=== PATIENT | female | born 1940 | race Caucasian/White ===

== ENCOUNTER 2016-07-14 12:41 | Emergency (ER) | payer OTHER ==
[~2016-07-14] VITALS: Ht 152.4 cm; Wt 71.7 kg
[~2016-07-14 12:41] MED LIST: ABILIFY 5MG5 MG PO; ALENDRONATE SOD70 M1 PO; ALPRAZOLAM0.5 MG PO; ARICEPT PO; ATIVAN0.5 M1 PO; BACTRIM DS TAB1 EACH PO; BENTYL10 M1 PO; DOXYCYCLINE HY100 M4 PO; DOXYCYCLINE MO100 MG PO; ENDOCET 325 MG-1 TA1 PO; FIBERCON625 M1 PO; GRAPE SEED EXTR50 M1 PO; MASON NATURAL2000 IU PO; NAMENDA10 M2 PO; PANTOPRAZOLE SO40 M1; POLYETHYLENE G255 GM PO; PRISTIQ100 MG PO; PROTONIX40 M3 PO; RITALIN10 MG PO; RITALIN5 M1 PO; SULFAMETHOXAZO1 EAC1 PO; ZOFRAN ODT4 M1 SL
--- NOTE | 2016-07-14 12:47 | ED GENERAL ADULT ---
History of Present Illness General Chief Complaint: Abdominal Pain/Flank Pain Stated Complaint: ABD PAIN, BRB IN STOOL Source: patient, family Exam Limitations: no limitations, unable to give history, patient's age, confusion, dementia Vital Signs & Intake/Output Vital Signs & Intake/Output Vital Signs Date Time Temp Pulse Resp B/P Pulse O2 O2 Flow FiO2 Ox Delivery Rate 07/14 1713 72 20 133/60 97 Room Air 07/14 1534 8.8 72 20 135/61 96 Room Air 07/14 1244 97 Room Air Room Air 07/14 1244 96.7 78 20 131/87 96 Room Air Allergies Coded Allergies: Penicillins (Severe, ANAPHYLAXIS 07/14/16) iodine (Severe, THROAT SWELLING 07/14/16) shellfish derived (Severe, RESPIRATORY 07/14/16) aspirin (Intermediate, ULCER 07/14/16) gluten (Intermediate, CELIAC DISEASE 07/14/16) Reconcile Medications Alendronate Sodium 70 MG TAB 1 TAB PO QW BONES (Reported) HOLD: DOSE ON SATURDAY Calcium Polycarbophil (Fibercon) 625 MG TABLET 1 TAB PO PRN SUPPLEMENT ( Reported) CHOLECALCIFEROL (VITAMIN D3) (Vitamin D) 2,000 UNIT CAPSULE 1 CAP PO DAILY SUPPLEMENT Desvenlafaxine Succinate (Pristiq ER) 100 MG TAB.ER.24H 1 TAB PO DAILY MENTAL HEALTH (Reported) Donepezil HCl (Aricept) 23 MG TABLET 1 TAB PO DAILY ALZHEIMERS (Reported) Grape Seed Extract 50 MG CAPSULE 2 CAP PO DAILY SUPPLEMENT (Reported) Lorazepam 1 MG TABLET 1 TAB PO TID ANXIETY (Reported) Memantine HCl (Namenda) 10 MG TABLET 1 TAB PO BID MEMORY (Reported) Methylphenidate Hydrochloride (Ritalin) 10 MG TABLET 1 TAB PO BID STIMULATION (Reported) Olanzapine (Zyprexa) 2.5 MG TABLET 1 TAB PO QPM UNK (Reported) Polyethylene Glycol 3350 255 GM POWDER 17 GM PO DAILY GI (Reported) Triage Nurses Notes Reviewed? yes Onset: Abrupt Duration: day(s): Timing: recent history HPI: 07/14/16 2:16 PM This is a 76-year-old female presents to the emergency department complaining of abdominal pain and rectal bleeding. According to the patient's , she was in her usual state of health until Saturday night when she developed lower abdominal pain. She went to the bathroom and had a large amount of diarrhea on Saturday. and Saturday she seemed to do well. Today she developed rectal bleeding and lower abdominal pain. There is no vomiting. She is a poor historian and is unable to give adequate history secondary to dementia. The onset of the symptoms were abrupt, the duration has been just today, the severity is significant; as her symptoms required her to come to the emergency department for care. She has associated rectal bleeding and abdominal pain. She's been taking GoLYTELY daily for the past month Past History Medical History Any Pertinent Medical History? 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 MOTHER Relation not specified for: *No pertinent family history FH: diabetes mellitus Hx Contributory? No Review of Systems Review of Systems Constitutional: Denies: fever. EENTM: Denies: visual changes. Respiratory: Denies: short of breath. Cardiovascular: Denies: chest pain. GI: Reports: abdominal pain, bloody stool. Denies: vomiting. Genitourinary: Reports: no symptoms. Musculoskeletal: Reports: no symptoms. Skin: Reports: no symptoms. Neurological/Psychological: Reports: no symptoms. Hematologic/Endocrine: Reports: bleeding. Immunologic/Allergic: Reports: no symptoms. Physical Exam Physical Exam General Appearance: alert, awake, anxious, mild distress Head: atraumatic, normal appearance Eyes: Bilateral: normal appearance, PERRL. Ears, Nose, Throat: normal pharynx, normal ENT inspection, hearing grossly normal Neck: supple Respiratory: chest non-tender, no respiratory distress Cardiovascular: regular rate/rhythm Peripheral Pulses: 4+ radial (R), 4+ radial (L) Gastrointestinal: soft, non-tender Rectal: heme positive stool, gross blood, no impaction Back: decreased range of motion Extremities: normal range of motion Neurologic/Psych: awake, alert Skin: intact, normal color, warm/dry Comments: The patient has significant leukocytosis. H&H was stable. She was treated with IV fluids. She only had minimal bleeding. The case was discussed with the liquor department manager Dr. Metzger, agrees with the plan. Stop GoLYTELY. The patient will follow-up with Dr. David this week. Return to the emergency department of rectal bleeding returns. CT scan shown below - PATIENT: MACIEL DELEON PRESENT AGE: 76 PATIENT ACCOUNT NO: [id number] : 40 LOCATION: [facility] ORDERING PHYSICIAN: SANTIAGO VILLEDA DO SERVICE DATE: 07/14/16 EXAM TYPE: CAT - CT ABD & PELVIS W/O IV CONTRAS EXAMINATION: CT ABDOMEN AND PELVIS WITHOUT CONTRAST CLINICAL INFORMATION: Rectal bleeding. Abdominal pain. COMPARISON: CT abdomen and pelvis 03/02/2016 TECHNIQUE: Multidetector volumetric imaging was performed from the superior aspect of the liver through the pubic symphysis. Sagittal and coronal reformatted images were obtained on the technologist's workstation. DLP: 411 mGy-cm. FINDINGS: LUNG BASES: There is bandlike dense atelectasis right lower lobe adjacent to the diaphragm. Left lung base is clear. The heart size is normal. LIVER, GALLBLADDER, AND BILIARY TREE: The liver is normal in size, shape, and attenuation. No focal hepatic lesion or biliary ductal dilatation is present. The gallbladder is unremarkable with no evidence of radiopaque gallstones, gallbladder wall thickening, or obvious pericholecystic inflammatory changes. PANCREAS: Unremarkable. SPLEEN: Unremarkable. ADRENAL GLANDS: Unremarkable. KIDNEYS AND URETERS: The kidneys are normal in size, shape, and attenuation. No hydronephrosis, hydroureter, or calculi seen. No perinephric stranding. BLADDER: Unremarkable. GASTROINTESTINAL TRACT: There is scattered stool in the colon without distention. The small bowel loops are normal caliber. No free air or free fluid seen. ABDOMINAL WALL: There is a left abdominal wall hernia repair involving the inguinal/femoral region with surgical estrada in place. No recurrent hernia seen. LYMPH NODES: Normal. VASCULAR: Atherosclerotic calcification of abdominal aorta is noted without aneurysmal dilatation. PELVIC VISCERA: The uterus appears to be surgically absent. No adnexal mass seen. There is no free fluid. No abnormal lymph nodes. There are scattered phleboliths in the pelvis. OSSEOUS STRUCTURES: There is levoscoliosis of lumbar spine with degenerative disc changes L2-L3, L4-L5 disc levels with vacuum disc phenomena and spondylosis. IMPRESSION: No acute intra-abdominal process. There is left lower inguinal/femoral hernia repair changes. No recurrent hernia seen. Thick bandlike right lower lobe atelectasis. DICTATED BY: MIGUEL A ELIZALDE MD DATE/TIME DICTATED:07/14/161507 CONCRETER:HAMLET DATE/TIME TRANSCRIBED:07/14/161507 CONFIDENTIAL, DO NOT COPY WITHOUT APPROPRIATE AUTHORIZATION. <Electronically signed in Other Vendor System> SIGNED BY: TONIO MORALES,MIGUEL A 07/14/16 1523 Core Measures ACS in differential dx? No CVA/TIA Diagnosis: No Severe Sepsis Present: No Septic Shock Present: No Progress Differential Diagnoses I considered the following diagnoses in my evaluation of the patient: [Bowel obstruction, diverticulosis, diverticulitis, colitis, internal hemorrhoid, coagulopathy] Plan of Care: Orders Procedure Date/time Status PROTHROMBIN TIME 07/14 1404 Complete COMPREHENSIVE METABOLIC PANEL 07/14 1404 Complete CBC WITHOUT DIFFERENTIAL 07/14 1404 Complete AMYLASE 07/14 1404 Complete TYPE & SCREEN (NOT X-MATCH) 07/14 140 Complete EKG 07/14 1253 Active Laboratory Tests 07/14/16 1606: Anion Gap 11, Estimated GFR > 60, BUN/Creatinine Ratio 21.7, Glucose 90, Calcium 9.3, Total Bilirubin 0.5, AST 20, ALT 36, Alkaline Phosphatase 84, Total Protein 7.3, Albumin 4.1, Globulin 3.2, Albumin/Globulin Ratio 1.3, Amylase 41 07/14/16 1437: PT 11.1, INR 1.06, CBC w Diff NO MAN DIFF REQ, RBC 5.07, MCV 88.2, MCH 29.7, RDW 12.9, MPV 9.3, Gran % 82.3 H, Lymphocytes % 12.1 L, Monocytes % 5.5, Eosinophils % 0.1, Basophils % 0 L, Absolute Granulocytes 13.1 H, Absolute Lymphocytes 1.9, Absolute Monocytes 0.9 H, Absolute Eosinophils 0, Absolute Basophils 0, PUBS MCHC 33.6 Initial ED EKG: none Departure Departure Disposition: STILL A PATIENT Condition: Stable Clinical Impression Primary Impression: Rectal bleeding Referrals: JAIRON MORALES,BECKY Britton (PCP/Family) Departure Forms: Customer Survey General Discharge Information Comments 07/14/16 Patient was treated with IV fluids. Labs were sent. CT scan of the abdomen and pelvis was ordered to exclude obstruction. 07/14/16 5 pm Spoke with GI. Case discussed. The patient is asymptomatic in the Emergency Department. H&H are stable. CT shows no acute findings. We will hold GoLYTELY. They will follow up with GI this week Critical Care Note Critical Care Note Critical Care Time: non-applicable
[2016-07-14 14:47] LABS: ABSOLUTE BASOPHIL COUNT 0 /CUMM (0.0-0.2); ABSOLUTE EOSINOPHIL COUNT 0 /CUMM (0.0-0.7); ABSOLUTE GRANULOCYTE CT 13.1 /CUMM (1.4-6.5); ABSOLUTE LYMPH COUNT 1.9 /CUMM (1.2-3.4); ABSOLUTE MONOCYTE COUNT 0.9 /CUMM (0.10-0.60); BASOPHIL % 0 % (0.0-2.0); EOSINOPHIL % 0.1 % (0-5); GRANULOCYTE % 82.3 % (42.2-75.2); HEMATOCRIT 44.7 % (37-47); MEAN CORPUSCULAR HGB 29.7 PG (27.0-31.0); MEAN CORPUSCULAR HGB CONC 33.6 G/DL (33.0-37.0); MEAN CORPUSCULAR VOLUME 88.2 FL (81.0-99.0); MEAN PLATELET VOLUME 9.3 FL (7.4-10.4); PLATELET COUNT 219 /CUMM (130-400); RBC DISTRIBUTION WIDTH 12.9 % (11.5-14.5); RED BLOOD CELL CT 5.07 /CUMM (4.20-5.40); WHITE BLOOD CELL COUNT 15.9 /CUMM (4.8-10.8)
[2016-07-14 14:53] LABS: PT 11.1 SEC (9.4-12.5)
[2016-07-14] MEDS ORDERED: LORAZEPAM1 M1 PO (15:04)
[2016-07-14] MEDS ORDERED: ZYPREXA2.5 M1 PO (15:05)
--- NOTE | 2016-07-14 15:23 | CT SCAN REPORT ---
EXAMINATION: CT ABDOMEN AND PELVIS WITHOUT CONTRAST CLINICAL INFORMATION: Rectal bleeding. Abdominal pain. COMPARISON: CT abdomen and pelvis 03/02/2016 TECHNIQUE: Multidetector volumetric imaging was performed from the superior aspect of the liver through the pubic symphysis. Sagittal and coronal reformatted images were obtained on the technologist's workstation. DLP: 411 mGy-cm. FINDINGS: LUNG BASES: There is bandlike dense atelectasis right lower lobe adjacent to the diaphragm. Left lung base is clear. The heart size is normal. LIVER, GALLBLADDER, AND BILIARY TREE: The liver is normal in size, shape, and attenuation. No focal hepatic lesion or biliary ductal dilatation is present. The gallbladder is unremarkable with no evidence of radiopaque gallstones, gallbladder wall thickening, or obvious pericholecystic inflammatory changes. PANCREAS: Unremarkable. SPLEEN: Unremarkable. ADRENAL GLANDS: Unremarkable. KIDNEYS AND URETERS: The kidneys are normal in size, shape, and attenuation. No hydronephrosis, hydroureter, or calculi seen. No perinephric stranding. BLADDER: Unremarkable. GASTROINTESTINAL TRACT: There is scattered stool in the colon without distention. The small bowel loops are normal caliber. No free air or free fluid seen. ABDOMINAL WALL: There is a left abdominal wall hernia repair involving the inguinal/femoral region with surgical estrada in place. No recurrent hernia seen. LYMPH NODES: Normal. VASCULAR: Atherosclerotic calcification of abdominal aorta is noted without aneurysmal dilatation. PELVIC VISCERA: The uterus appears to be surgically absent. No adnexal mass seen. There is no free fluid. No abnormal lymph nodes. There are scattered phleboliths in the pelvis. OSSEOUS STRUCTURES: There is levoscoliosis of lumbar spine with degenerative disc changes L2-L3, L4-L5 disc levels with vacuum disc phenomena and spondylosis. IMPRESSION: No acute intra-abdominal process. There is left lower inguinal/femoral hernia repair changes. No recurrent hernia seen. Thick bandlike right lower lobe atelectasis.
[2016-07-14 17:13] VITALS: BP 133/60
== END 2016-07-14 17:15 ==
LOC: ERH 12:41
PROVIDERS: Emergency Medicine
DX: K62.5 Hemorrhage of anus and rectum (principal)
CPT/HCPCS: 74176; 93005; 93010; 96361; 96374

== ENCOUNTER 2017-08-07 12:32 | Emergency (ER) | payer OTHER ==
[~2017-08-07] VITALS: Ht 152.4 cm; Wt 74.4 kg
[~2017-08-07 12:32] MED LIST changes: -ALENDRONATE SOD70 M1 PO; +ALENDRONATE SOD70 M2 PO; +LORAZEPAM1 M1 PO; +PRISTIQ ER100 MG PO; -PRISTIQ100 MG PO; +ZYPREXA2.5 M1 PO
--- NOTE | 2017-08-07 13:10 | ED GENERAL ADULT ---
History of Present Illness General Chief Complaint: General Adult Stated Complaint: COUGHING,FEVER, RECENTLY WITH FLU Source: patient, family Exam Limitations: no limitations Vital Signs & Intake/Output Vital Signs & Intake/Output Vital Signs Date Time Temp Pulse Resp B/P B/P Pulse O2 O2 Flow FiO2 Mean Ox Delivery Rate 08/07 1611 98.2 96 20 143/88 94 Room Air 08/07 1400 94 Room Air Room Air 08/07 1334 99.7 100 20 150/73 94 Room Air 08/07 1329 98.0 107 122/72 95 Room Air Allergies Coded Allergies: Penicillins (Severe, ANAPHYLAXIS 08/07/17) iodine (Severe, THROAT SWELLING 08/07/17) shellfish derived (Severe, RESPIRATORY 08/07/17) aspirin (Intermediate, ULCER 08/07/17) gluten (Intermediate, CELIAC DISEASE 08/07/17) Reconcile Medications Alendronate Sodium 70 MG TABLET 1 TAB PO Mo BONE (Reported) in the morning, at least 30 minutes before the first food, beverage, or medication of the day Benzonatate (Tessalon Perle) 100 MG CAPSULE 1 CAP PO TID PRN COUGH Desvenlafaxine Succinate (Pristiq ER) 100 MG TAB.ER.24H 1 TAB PO DAILY MENTAL HEALTH (Reported) Donepezil HCl (Aricept) 23 MG TABLET 1 TAB PO DAILY ALZHEIMERS (Reported) Fluticasone Propionate (Flonase Allergy Relief) 50 MCG/ACTUATION SPRAY.SUSP 1 SPRAY YARY BID PRN CONGESTION LORazepam (Ativan) 1 MG TAB 1 TAB PO TID PRN ANXIETY (Reported) Memantine HCl (Namenda) 10 MG TABLET 1 TAB PO BID MEMORY (Reported) Olanzapine (Zyprexa) 2.5 MG TABLET 1 TAB PO TID UNK (Reported) Olanzapine 2.5 MG TABLET 1 TAB PO DAILY PRN AGITATION (Reported) Triage Nurses Notes Reviewed? yes Onset: Gradual Duration: day(s): (2) Timing: remote history Injury Environment: home Severity: moderate No Modifying Factors: none HPI: Patient is a 77-year-old female from home presenting with family members with chief complaint of cough, low-grade fevers for the past 2 days. was recently admitted to hospital for influenza, just discharged this morning. No sputum production. Patient has been eating within normal limits. Cognitive abilities in mentation at baseline according to family members. Abdomen noticed any discolored urine. No diarrhea. They have not been giving her anything to help with symptoms. (Janee Aguero) Past History Travel History Traveled to [place] past 21 day No Medical History Any Pertinent Medical History? see below for history Neurological: Alzheimer's disease, dizziness, vertigo EENT: allergies, cataracts Cardiovascular: NONE Respiratory: NONE Gastrointestinal: constipation, CELIAC DISEASE HERNIA Hepatic: NONE Renal: KIDNEY STONES Musculoskeletal: disk herniation, falls, fracture, LAMINECTOMY Psychiatric: depression Endocrine: PRE-DIABETIC Blood Disorders: NONE Cancer(s): NONE WOOD GOUGER/Reproductive: NONE History of MRSA: Yes History of VRE: No History of CDIFF: No Surgical History Surgical History: appendectomy, hysterectomy Psychosocial History Who do you live with Spouse What is your primary language Sinhala Family History Family History, If Any: FATHER, , Age 50-60; Cause: Myocardial infarct. MOTHER Relation not specified for: *No pertinent family history FH: diabetes mellitus Hx Contributory? No (Janee Aguero) Review of Systems Review of Systems Constitutional: Reports: see HPI, fever, malaise. Comments Review of systems: See HPI, All other systems negative. Constitutional, no weight loss HEENT: No visual changes no sore throat Cardiovascular: No chest pain ,palpitation , orthopnea or ankle swelling Skin, no jaundice no rashes Respiratory: No dyspnea sputum or hemoptysis GI: No nausea no vomiting : No dysuria No hematuria Muscle skeletal: no back pain, no neck pain, Neurologic: No numbness no increased confusion Psych: No stress anxiety or depression,. Heme/endocrine: No bruising no bleeding no polyuria or polydipsia Immunology: No splenectomy or history of AIDS (Janee Aguero) Physical Exam Physical Exam General Appearance: well developed/nourished, no apparent distress, alert, awake , comfortable Comments: Well-developed well-nourished person in no acute distress, appears fatigued HEENT: Pupils equally round and reactive to light and accommodation. Nose is atraumatic. External auditory canal and Tympanic membranes clear. Pharynx normal. No swelling or edema. Neck: Supple, no lymphadenopathy, normal range of motion without pain or tenderness Cardiovascular: Regular rate and rhythms no murmurs rubs or gallops, normal JVP Respiratory: Chest nontender. No respiratory distress.breath sounds diminished to auscultation bilaterally Abdomen: Soft, nontender nondistended, no appreciable organomegaly. Normal bowel sounds. No ascites Extremity: No edema, no calf tenderness to palpation, normal and equal pulses. Neuro: Alert oriented x3, motor sensory normal, cranial nerves II through XII grossly intact. Skin: No appreciable rash on exposed skin, skin is warm and dry. Psych: Mood and affect is normal, memory and judgment is normal. Core Measures ACS in differential dx? No CVA/TIA Diagnosis: No Sepsis Present: No Sepsis Focused Exam Completed? No (Emmett LUONG,Janee) Progress Differential Diagnoses I considered the following diagnoses in my evaluation of the patient: Pneumonia , bronchitis, influenza, electrolyte abnormality, dehydration, UTI, viral syndrome Plan of Care: Orders Procedure Date/time Status Heart Healthy Diet 08/07 D Active LACTIC ACID 08/07 1559 Active Straight Cath 08/07 1517 Active BLOOD CULTURE 08/07 1259 Active URINALYSIS 08/07 1259 Complete TROPONIN LEVEL 08/07 1259 Complete LACTIC ACID 08/07 1259 Complete COMPREHENSIVE METABOLIC PANEL 08/07 1259 Complete CBC WITHOUT DIFFERENTIAL 08/07 1259 Complete EKG 08/07 1259 Active RAPID VIRAL INFLUENZA A 08/07 1235 Complete Laboratory Tests 08/07/17 1601: Urine Color YEL, Urine Clarity CLEAR, Urine pH 6.0, Ur Specific Pitman 1.010, Urine Protein NEG, Urine Ketones NEG, Urine Nitrite NEG, Urine Bilirubin NEG, Urine Urobilinogen 0.2, Ur Leukocyte Esterase NEG, Ur Microscopic EXAM NOT REQUIRED, Urine Hemoglobin NEG, Urine Glucose NEG 08/07/17 1455: Anion Gap 16, Estimated GFR > 60, BUN/Creatinine Ratio 13.3, Glucose 108 H, Lactic Acid 2.8 H, Calcium 9.7, Total Bilirubin 0.6, AST 24, ALT 25, Alkaline Phosphatase 89, Troponin I < 0.01, Total Protein 7.7, Albumin 4.4, Globulin 3.3, Albumin/Globulin Ratio 1.3, CBC w Diff NO MAN DIFF REQ, RBC 5.31, MCV 88.7, MCH 29.8, MCHC 33.5, RDW 13.3, MPV 8.7, Gran % 75.0, Lymphocytes % 14.3 L, Monocytes % 9.8 H, Eosinophils % 0.2, Basophils % 0.7, Absolute Granulocytes 5.4, Absolute Lymphocytes 1.0 L, Absolute Monocytes 0.7 H, Absolute Eosinophils 0, Absolute Basophils 0.1 Microbiology 08/07 1259 BLOOD: Blood Culture - ORD 08/07 1259 BLOOD: Blood Culture - ORD 08/07 1258 NASOPHARYN: Influenza Virus A & B Rapid Smear - COMP Improved after IV hydration. Influenza swab was negative. Blood work unremarkable. Patient more alert at this time, eating difficulty. Family feels comfortable bringing her home. They arranged a chair car for her to go home and. Discussed with attending and they agree with plan. Patient is nontoxic and compliant. Diagnostic Imaging: Viewed by Me: Radiology Read. Discussed w/RAD: Radiology Read. Radiology Impression: PATIENT: MACIEL DELEON PRESENT AGE: 77 PATIENT ACCOUNT NO: [id number] : 40 LOCATION: [facility] ORDERING PHYSICIAN: Janee LUONG SERVICE DATE: 08/07/17-1 EXAM TYPE: RAD - XRY-PORTABLE CHEST XRAY EXAMINATION: XR PORTABLE CHEST CLINICAL INFORMATION: Cough and shortness of breath. Evaluate for pneumonia. COMPARISON: Chest radiograph 09/27/2016. TECHNIQUE: Portable frontal view of the chest was obtained. FINDINGS: Lung volumes are low and there is associated hilar vascular crowding and bibasilar subsegmental atelectasis. Grossly no overt consolidative disease or effusion. The cardiac silhouette and upper mediastinal contours are unremarkable. No acute osseous finding. Cardiac leads overlie the chest. IMPRESSION: Low lung volumes with associated hilar vascular crowding and bibasilar subsegmental atelectasis. No overt consolidative disease or effusion. DICTATED BY: Bernard Rankin MD DATE/TIME DICTATED:08/07/171400 FOOD AND DRUG INSPECTOR:HAMLET DATE/TIME TRANSCRIBED:08/07/171400 CONFIDENTIAL, DO NOT COPY WITHOUT APPROPRIATE AUTHORIZATION. <Electronically signed in Other Vendor System> SIGNED BY: Bernard Rankin MD 08/07/17 1405, PATIENT: MACIEL DELEON PRESENT AGE: 77 PATIENT ACCOUNT NO : [id number] : 40 LOCATION: ER ORDERING PHYSICIAN: Janee LUONG SERVICE DATE: 08/07/17-1442 EXAM TYPE: CAT - CT ABD & PELVIS W/O IV CONTRAS EXAMINATION: CT ABDOMEN AND PELVIS WITHOUT CONTRAST CLINICAL INFORMATION: Increased loose stools, evaluate for diverticulitis. COMPARISON: CT scan of the abdomen and pelvis dated 07/14/2016. TECHNIQUE: Multidetector volumetric imaging was performed from the superior aspect of the liver through the pubic symphysis. Sagittal and coronal reformatted images were obtained on the technologist's workstation. DLP: 411.91 mGy-cm FINDINGS: LUNG BASES: Volume loss in the posterior aspect of the right lung base is stable compared to the prior study likely representing scarring or atelectasis.. LIVER, GALLBLADDER, AND BILIARY TREE: The liver is heterogeneous in attenuation, and is hypoattenuating, however no focal hepatic mass lesions are noted. No focal hepatic lesion or biliary ductal dilatation is present. The gallbladder is unremarkable with no evidence of radiopaque gallstones, gallbladder wall thickening, or obvious pericholecystic inflammatory changes. PANCREAS: Predominantly fatty replaced, no focal pancreatic lesions. SPLEEN: Unremarkable. ADRENAL GLANDS: Unremarkable. KIDNEYS AND URETERS: The kidneys are normal in size, shape, and attenuation. No hydronephrosis, hydroureter, or calculi seen. No perinephric stranding. BLADDER: Unremarkable. GASTROINTESTINAL TRACT: The small bowel loops are unremarkable. There is a prominent fecal burden present throughout the colon, no circumferential colonic wall thickening, pericolonic mesenteric inflammatory changes or asymmetric bowel wall thickening is noted throughout the colon. Surgical clips are present adjacent to the cecum consistent with prior appendectomy, the appendix is not visualized. ABDOMINAL WALL: There is a small left inguinal hernia which contains only mesenteric fat. Multiple surgical clips are present in the left inguinal region suggestive of prior hernia repair. LYMPH NODES: Normal. VASCULAR: Atherosclerotic plaque is present in the abdominal aorta which is normal in caliber throughout.. PELVIC VISCERA: Diaphragm incidentally noted within the cervix. OSSEOUS STRUCTURES: Unremarkable. IMPRESSION: 1. Heterogeneous hypoattenuation of the liver is consistent with hepatic steatosis, no hepatic mass lesions are noted. 2. Prominent fecal burden throughout the colon, no infectious or inflammatory changes are present throughout the colon. 3. Stable bandlike atelectasis or scarring in the right lung base is stable compared to the prior study. DICTATED BY: Wilda Molina MD DATE/TIME DICTATED:08/07/171535 FOOD AND DRUG INSPECTOR:HAMLET DATE/ TIME TRANSCRIBED:08/07/171535 CONFIDENTIAL, DO NOT COPY WITHOUT APPROPRIATE AUTHORIZATION. <Electronically signed in Other Vendor System> SIGNED BY: Wilda Molina MD 08/07/17 154 Initial ED EKG: SINUS RHYTHM AT 90 60/M, NONSPECIFIC t ABNORMALITIES (Janee Aguero) Departure Departure Time of Disposition: 1823 Disposition: HOME OR SELF CARE Condition: Stable Clinical Impression Primary Impression: Cough Secondary Impressions: Loose stools Upper respiratory infection Qualifiers: URI type: unspecified viral URI Qualified Code: J06.9 - Acute upper respiratory infection, unspecified Referrals: Alon MORALES,Ck [place] (PCP/Family) Additional Instructions: Follow Up with your primary care physician in the next 1-2 days. Increase fluids. Return for worsening symptoms or concerns. Take cough medication as directed. Departure Forms: Customer Survey General Discharge Information Prescriptions: Current Visit Scripts Benzonatate (Tessalon Perle) 1 CAP PO TID PRN COUGH #30 CAP Fluticasone Propionate (Flonase Allergy Relief) 1 SPRAY YARY BID PRN CONGESTION #1 UNIT (Janee Aguero) PA/ENGINEERING PROJECT MANAGER Co-Sign Statement Statement: ED Attending supervision documentation- [X] I saw and evaluated the patient. I have also reviewed all the pertinent lab results and diagnostic results. I agree with the findings and the plan of care as documented in the PA's/ENGINEERING PROJECT MANAGER's documentation. [X] I have reviewed the ED Record and agree with the PA's/ENGINEERING PROJECT MANAGER's documentation. [] Additions or exceptions (if any) to the PAs/ENGINEERING PROJECT MANAGER's note and plan are summarized below: [] (Neftaly MORALES,Arnold [place]) Critical Care Note Critical Care Note Critical Care Time: non-applicable (Janee Aguero)
--- NOTE | 2017-08-07 14:05 | RADIOLOGY REPORT ---
EXAMINATION: XR PORTABLE CHEST CLINICAL INFORMATION: Cough and shortness of breath. Evaluate for pneumonia. COMPARISON: Chest radiograph 09/27/2016. TECHNIQUE: Portable frontal view of the chest was obtained. FINDINGS: Lung volumes are low and there is associated hilar vascular crowding and bibasilar subsegmental atelectasis. Grossly no overt consolidative disease or effusion. The cardiac silhouette and upper mediastinal contours are unremarkable. No acute osseous finding. Cardiac leads overlie the chest. IMPRESSION: Low lung volumes with associated hilar vascular crowding and bibasilar subsegmental atelectasis. No overt consolidative disease or effusion.
[2017-08-07 15:02] LABS: ABSOLUTE BASOPHIL COUNT 0.1 /CUMM (0.0-0.2); ABSOLUTE EOSINOPHIL COUNT 0 /CUMM (0.0-0.7); ABSOLUTE GRANULOCYTE CT 5.4 /CUMM (1.4-6.5); ABSOLUTE MONOCYTE COUNT 0.7 /CUMM (0.10-0.60); BASOPHIL % 0.7 % (0.0-2.0); EOSINOPHIL % 0.2 % (0-5); HEMATOCRIT 47.1 % (37-47); MEAN CORPUSCULAR HGB 29.8 PG (27.0-31.0); MEAN CORPUSCULAR HGB CONC 33.5 G/DL (33.0-37.0); MEAN CORPUSCULAR VOLUME 88.7 FL (81.0-99.0); MEAN PLATELET VOLUME 8.7 FL (7.4-10.4); PLATELET COUNT 234 /CUMM (130-400); RBC DISTRIBUTION WIDTH 13.3 % (11.5-14.5); RED BLOOD CELL CT 5.31 /CUMM (4.20-5.40); WHITE BLOOD CELL COUNT 7.2 /CUMM (4.8-10.8)
[2017-08-07] MEDS ORDERED: OLANZAPINE2.5 M1 PO (15:02)
[2017-08-07] MEDS ORDERED: ATIVAN1 M1 PO (15:03)
--- NOTE | 2017-08-07 15:47 | CT SCAN REPORT ---
EXAMINATION: CT ABDOMEN AND PELVIS WITHOUT CONTRAST CLINICAL INFORMATION: Increased loose stools, evaluate for diverticulitis. COMPARISON: CT scan of the abdomen and pelvis dated 07/14/2016. TECHNIQUE: Multidetector volumetric imaging was performed from the superior aspect of the liver through the pubic symphysis. Sagittal and coronal reformatted images were obtained on the technologist's workstation. DLP: 411.91 mGy-cm FINDINGS: LUNG BASES: Volume loss in the posterior aspect of the right lung base is stable compared to the prior study likely representing scarring or atelectasis.. LIVER, GALLBLADDER, AND BILIARY TREE: The liver is heterogeneous in attenuation, and is hypoattenuating, however no focal hepatic mass lesions are noted. No focal hepatic lesion or biliary ductal dilatation is present. The gallbladder is unremarkable with no evidence of radiopaque gallstones, gallbladder wall thickening, or obvious pericholecystic inflammatory changes. PANCREAS: Predominantly fatty replaced, no focal pancreatic lesions. SPLEEN: Unremarkable. ADRENAL GLANDS: Unremarkable. KIDNEYS AND URETERS: The kidneys are normal in size, shape, and attenuation. No hydronephrosis, hydroureter, or calculi seen. No perinephric stranding. BLADDER: Unremarkable. GASTROINTESTINAL TRACT: The small bowel loops are unremarkable. There is a prominent fecal burden present throughout the colon, no circumferential colonic wall thickening, pericolonic mesenteric inflammatory changes or asymmetric bowel wall thickening is noted throughout the colon. Surgical clips are present adjacent to the cecum consistent with prior appendectomy, the appendix is not visualized. ABDOMINAL WALL: There is a small left inguinal hernia which contains only mesenteric fat. Multiple surgical clips are present in the left inguinal region suggestive of prior hernia repair. LYMPH NODES: Normal. VASCULAR: Atherosclerotic plaque is present in the abdominal aorta which is normal in caliber throughout.. PELVIC VISCERA: Diaphragm incidentally noted within the cervix. OSSEOUS STRUCTURES: Unremarkable. IMPRESSION: 1. Heterogeneous hypoattenuation of the liver is consistent with hepatic steatosis, no hepatic mass lesions are noted. 2. Prominent fecal burden throughout the colon, no infectious or inflammatory changes are present throughout the colon. 3. Stable bandlike atelectasis or scarring in the right lung base is stable compared to the prior study.
[2017-08-07] MEDS ORDERED: FLONASE ALLERG9.9 ML NAS (18:27)
[2017-08-07] MEDS ORDERED: TESSALON PERLE100 M1 PO (18:27)
[2017-08-07 19:44] VITALS: BP 148/80
== END 2017-08-07 19:46 ==
LOC: ERH 12:32
PROVIDERS: Physician Assistant Medical
DX: J06.9 Acute upper respiratory infection, unspecified (principal); R19.7 Diarrhea, unspecified; R50.9 Fever, unspecified
CPT/HCPCS: 71045; 74176; 81003; 87040; 87804; 87804-59; 93005; 93010